=== PATIENT | female | born 1970 | race Caucasian/White ===

== ENCOUNTER → 2020-04-01 | Outpatient (REF) ==
--- NOTE | 2020-04-01 16:24 | Diagnostic Imaging Report ---
INDICATION: Trauma to the head. Pain. COMPARISON: None. FINDINGS: Three views of the skull were obtained and show no healing or displaced skull fractures. No lytic or blastic bony lesions are seen. Paranasal sinuses appear clear. No unexpected radiopaque foreign bodies are identified. IMPRESSION: 1. No healing or displaced skull fractures. Dictated by: Dictated on workstation # [id number]
== END ==
LOC: OCC 15:25
PROVIDERS: ATTEND Family Medicine
DX: S09.90XA Unspecified injury of head, initial encounter (principal); X58.XXXA Exposure to other specified factors, initial encounter
CPT/HCPCS: 70250